=== PATIENT | male | born 1955 | race Caucasian/White ===

== ENCOUNTER 2017-10-07 12:09 | Observation (INO) ==
--- NOTE | 2017-10-07 12:43 | Emergency Department Note ---
Disposition Clinical Impression: Azotemia, Orthostatic hypotension Leukocytosis, unspecified Qualifiers: Leukocytosis type: unspecified Qualified Code(s): D72.829 - Elevated white blood cell count, unspecified Disposition: Admitted As Inpatient Condition: Fair Time of Disposition: 15:00 (Dr Eaton) Weakness HPI - General Chief complaint: ED General Medical Stated complaint: Family sts he needs to be admitted Time Seen by Provider: 10/07/17 12:26 Source: patient, family Limitations: no limitations Nursing Notes Reviewed: Yes Vital Signs Reviewed: Yes - History of Present Illness Pt Subjective Complaint: generalized weakness/fatigue Onset (ago): week(s) (1) Duration: gradually worsening Location: generalized Migration: none Pain Scale: 10 Context: other (Patient comes to the ED secondary to progressive weakness in the last week. The patient states when he tries to ambulate he feels dizzy and has difficult time getting from the bedroom to his bathroom. He denies any shortness of breath but rather feels lightheaded. He was seen in the ED less than a week ago secondary to bladder retention and just underwent CT scan of the abdomen and pelvis secondary for current urologic workup.) Associated symptoms: Reports: loss of appetite, syncope. Denies: chest pain, confusion, dark stools, diaphoresis, dysuria, easy bruising, fever/chills, headaches, nausea/vomiting, myalgias, rash, shortness of breath - Related Data Home Medications Medication Instructions Recorded Confirmed Clopidogrel [Plavix] 75 mg PO DAILY 07/16/15 10/07/17 Lisinopril 20 mg PO DAILY 12/22/15 10/07/17 Albuterol Sulfate [Albuterol 2 puff IH Q4HR PRN 07/01/16 10/07/17 Inhaler] Aspirin [Lo-Dose Aspirin EC] 81 mg PO DAILY 01/26/17 10/07/17 Lovastatin 80 mg PO HS 01/26/17 10/07/17 amLODIPine [Norvasc] 5 mg PO DAILY 01/26/17 10/07/17 Oxybutynin [Ditropan] 10 mg PO DAILY 10/07/17 10/07/17 Previous Rx's Medication Instructions Recorded OxyCODONE/APAP 5/325 [Percocet 1 each PO Q6HR PRN #20 tablet 05/15/17 5/325 MG] Allergies Allergy/AdvReac Type Severity Reaction Status Date / Time Beta-Blockers AdvReac See Verified 05/14/17 07:19 (Beta-Adrenergic Bloc Comments All systems ED: reviewed and negative except as stated. Past Medical History - Past Medical History Medical history: Reports: COPD, coronary artery disease, CVA, hyperlipidemia, hypertension, other Surgical history: Reports: angioplasty/stent, other Psychiatric history: Reports: PTSD - Social History Smoking Status: Current every day smoker Smokeless Tobacco Status: No Alcohol use: Reports: none Drug use: Reports: none Physical Exam - General Limitations: no limitations General appearance: alert - Head Head exam: atraumatic, normocephalic - Eye Eye exam: Present: normal appearance, PERRL, EOMI. Absent: scleral icterus, conjunctival injection, nystagmus - ENT ENT exam: normal exam, normal oropharynx - Neck Neck exam: Present: normal inspection, full ROM, trachea midline. Absent: meningismus, lymphadenopathy - Chest Chest inspection: Present: normal inspection, symmetric chest wall rise - Respiratory Respiratory exam: Present: normal lung sounds bilaterally. Absent: respiratory distress, wheezes, stridor, accessory muscle use - Cardiovascular Cardiovascular exam: Present: regular rate, normal rhythm, normal heart sounds. Absent: JVD - Abdominal Exam Abdominal exam: Present: soft, tenderness, normal bowel sounds Abdominal tenderness: Present: suprapubic, mild - Extremities Exam Extremities exam: Present: normal inspection, full ROM, normal capillary refill. Absent: tenderness, pedal edema, joint swelling - Back Exam Back exam: Present: normal inspection, full ROM. Absent: tenderness, CVA tenderness (R), CVA tenderness (L) - Neurological Exam Neurological exam: Present: alert, oriented X3 - Skin Skin exam: Present: warm, dry, intact Course Vital Signs Temperature 97.4 F L 10/07/17 12:12 Pulse Rate 83 10/07/17 12:12 Respiratory Rate 17 10/07/17 12:12 Blood Pressure 72/50 10/07/17 12:12 O2 Sat by Pulse Oximetry 92 10/07/17 12:12 Temperature 98.9 F 10/07/17 20:40 Pulse Rate 82 10/07/17 20:40 Respiratory Rate 18 10/07/17 20:40 Blood Pressure 108/68 10/07/17 20:40 O2 Sat by Pulse Oximetry 94 10/07/17 20:40 Oxygen Delivery Oxygen Delivery Room Air Weakness - MDM Narrative Medical decision making narrative: Stable ED course with no changes in mental status. The patient positive orthostatic hypotension which could be leading to his current dizziness when he ambulates. Laboratory evaluation indicates cytosis of undetermined etiology. I did review the patient's CT scan that was done today and indicates that he may have an obstructive bladder secondary to potential mass leading to hydronephrosis. 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 The patient presentation was discussed with hospitalist and agreed to admit the patient for hydration and stabilization of his orthostatic hypotension. The patient also received Levaquin for potential bladder infection. Patient's previous urinalysis was negative for any infection or gross. - Differential Diagnosis Differential Diagnosis: Likely: anemia, dehydration, medication effect - Medical Records Medical records reviewed: Yes I reviewed the patient's medical records. - Lab Data Lab results reviewed: Yes I reviewed the patient's lab results. Result diagrams: 10/07/17 13:11 10/07/17 13:11 Lab Results 10/07/17 10/07/17 10/07/17 Range/Units 13:11 13:11 13:11 WBC 30.0 H* (4.3-11.1) K/mcL RBC 4.07 L (4.19-5.50) M/mcL Hgb 11.5 L (12.9-16.9) g/dL Hct 35.5 L (37.5-50.1) % MCV 87.2 (83.0-100.0) fL MCH 28.3 (28.0-33.3) pg MCHC 32.4 (31.6-35.5) g/dL RDW 13.3 (11.5-14.5) % Plt Count 392 (140-400) K/mcL MPV 10.0 (9.4-12.4) fL Seg Neutrophils % 62.0 % Band Neutrophils % 2.0 (0-4) % Lymphocytes % 17.0 % Monocytes % 8.0 % Eosinophils % 8.0 % Basophils % 2.0 % Promyelocytes % 1.0 H (0) % Neutrophils # 19.2 H (1.6-8.9) K/mcL Lymphocytes # 5.1 H (0.6-4.6) K/mcL Monocytes # 2.4 H (0.0-1.3) K/mcL Eosinophils # 2.4 H (0.0-0.6) K/mcL Basophils # 0.6 H (0.0-0.2) K/mcL Platelet Estimate Increased H (Normal) Sodium 131 L (136-145) mEq/L Potassium 4.7 (3.5-5.1) mEq/L Chloride 94 L (98-107) mEq/L Carbon Dioxide 27 (23-29) mEq/L BUN 36 H (8-23) mg/dL Creatinine 2.31 H (0.70-1.30) mg/dL Est GFR ( Amer) 35 L (> 60) Est GFR (Non-Af Amer) 29 L (> 60) BUN/Creatinine Ratio 16 (6-26) Glucose 111 H (70-105) mg/dL Calculated Osmolality 281 (280-300) Calcium 9.1 (8.6-10.3) mg/dL Total Bilirubin (0.3-1.0) mg/dL Direct Bilirubin (0.0-0.2) mg/dL Indirect Bilirubin (0.0-1.2) mg/dL AST (13-39) Units/L ALT (7-52) Units/L Alkaline Phosphatase (34-104) Units/L Troponin I < 0.03 (< 0.04) ng/mL B-Natriuretic Peptide (Less than 100) pg/mL Serum Total Protein (6.4-8.9) g/dL Albumin (3.5-5.7) g/dL Globulin (2.4-3.5) g/dL Albumin/Globulin Ratio (1.1-2.2) Urine Color (Yellow) Urine Clarity (Clear) Urine pH (5.0-8.0) pH Units Ur Specific [place] (1.010-1.025) Urine Protein (Neg-Trace) mg/dL Urine Glucose (UA) (Normal) mg/dL Urine Ketones (Negative) mg/dL Urine Blood (Negative) Urine Nitrite (Negative) Urine Bilirubin (Negative) Urine Urobilinogen (Normal) mg/dL Ur Leukocyte Esterase (Negative) Urine Microscopic RBC (0-3) per hpf Urine Microscopic WBC (0-3) per hpf Ur Squamous Epith Cells (None-Few) per lpf Urine Bacteria (None-Few) per hpf Urine Mucus (Few) Ur Culture Indicated? (NO) 10/07/17 10/07/17 10/07/17 Range/Units 13:11 13:11 14:27 WBC (4.3-11.1) K/mcL RBC (4.19-5.50) M/mcL Hgb (12.9-16.9) g/dL Hct (37.5-50.1) % MCV (83.0-100.0) fL MCH (28.0-33.3) pg MCHC (31.6-35.5) g/dL RDW (11.5-14.5) % Plt Count (140-400) K/mcL MPV (9.4-12.4) fL Seg Neutrophils % % Band Neutrophils % (0-4) % Lymphocytes % % Monocytes % % Eosinophils % % Basophils % % Promyelocytes % (0) % Neutrophils # (1.6-8.9) K/mcL Lymphocytes # (0.6-4.6) K/mcL Monocytes # (0.0-1.3) K/mcL Eosinophils # (0.0-0.6) K/mcL Basophils # (0.0-0.2) K/mcL Platelet Estimate (Normal) Sodium (136-145) mEq/L Potassium (3.5-5.1) mEq/L Chloride (98-107) mEq/L Carbon Dioxide (23-29) mEq/L BUN (8-23) mg/dL Creatinine (0.70-1.30) mg/dL Est GFR ( Amer) (> 60) Est GFR (Non-Af Amer) (> 60) BUN/Creatinine Ratio (6-26) Glucose (70-105) mg/dL Calculated Osmolality (280-300) Calcium (8.6-10.3) mg/dL Total Bilirubin 0.9 (0.3-1.0) mg/dL Direct Bilirubin 0.3 H (0.0-0.2) mg/dL Indirect Bilirubin 0.6 (0.0-1.2) mg/dL AST 23 (13-39) Units/L ALT 36 (7-52) Units/L Alkaline Phosphatase 145 H (34-104) Units/L Troponin I (< 0.04) ng/mL B-Natriuretic Peptide 52 (Less than 100) pg/mL Serum Total Protein 6.8 (6.4-8.9) g/dL Albumin 2.9 L (3.5-5.7) g/dL Globulin 3.9 H (2.4-3.5) g/dL Albumin/Globulin Ratio 0.7 L (1.1-2.2) Urine Color Light Yellow (Yellow) Urine Clarity Clear (Clear) Urine pH 5.5 (5.0-8.0) pH Units Ur Specific [place] <= 1.005 L (1.010-1.025) Urine Protein 30 H (Neg-Trace) mg/dL Urine Glucose (UA) Normal (Normal) mg/dL Urine Ketones Negative (Negative) mg/dL Urine Blood Large H (Negative) Urine Nitrite Negative (Negative) Urine Bilirubin Negative (Negative) Urine Urobilinogen Normal (Normal) mg/dL Ur Leukocyte Esterase Moderate H (Negative) Urine Microscopic RBC 15-30 H (0-3) per hpf Urine Microscopic WBC 5-15 H (0-3) per hpf Ur Squamous Epith Cells Few (None-Few) per lpf Urine Bacteria Few (None-Few) per hpf Urine Mucus Few (Few) Ur Culture Indicated? YES A (NO) - Radiology Data Radiology results reviewed: Yes I reviewed the patient's radiology results. Chest X-Ray 10/07/17 13:32 IMPRESSION: No acute cardiopulmonary disease. D/ / Jennifer Barnes MD / Jennifer Barnes MD Interpreting Provider: Jennifer Barnes MD - EKG Data Rate: normal Rhythm: NSR Interpretation: normal EKG, unchanged when compared to prior tracing (date) (), nonspecific ST-T wave changes
[2017-10-07] MEDS ORDERED: 0.9 % Sodium Chloride 1,000 ML IVC ONE (12:44)
[2017-10-07 13:19] LABS: Hematocrit 35.5 % (37.5-50.1); Hemoglobin 11.5 g/dL (12.9-16.9); Mean Corpuscular HGB Conc 32.4 g/dL (31.6-35.5); Mean Corpuscular Hemoglobin 28.3 pg (28.0-33.3); Mean Corpuscular Volume 87.2 fL (83.0-100.0); Platelet Count 392 K/mcL (140-400); Red Blood Count 4.07 M/mcL (4.19-5.50); Red Cell Distribution Width 13.3 % (11.5-14.5)
[2017-10-07] MEDS ORDERED: Levofloxacin 750 MG/150 ML 750 MG/150 ML BAG IVPB ONE (13:44)
[2017-10-07 13:45] LABS: Basophils # 0.6 K/mcL (0.0-0.2); Eosinophils # 2.4 K/mcL (0.0-0.6); Monocytes # 2.4 K/mcL (0.0-1.3); Neutrophils # 19.2 K/mcL (1.6-8.9)
[2017-10-07 13:46] LABS: Lymphocytes # 5.1 K/mcL (0.6-4.6)
[2017-10-07 13:47] LABS: Platelet Estimate Increased (Normal)
[2017-10-07 14:37] LABS: Albumin 2.9 g/dL (3.5-5.7); Albumin/Globulin Ratio 0.7 (1.1-2.2); Bilirubin,Direct 0.3 mg/dL (0.0-0.2); Bilirubin,Indirect 0.6 mg/dL (0.0-1.2); Bilirubin,Total 0.9 mg/dL (0.3-1.0); Calcium 9.1 mg/dL (8.6-10.3); Globulin 3.9 g/dL (2.4-3.5); Potassium 4.7 mEq/L (3.5-5.1); Total Protein 6.8 g/dL (6.4-8.9)
[2017-10-07 14:38] LABS: Bilirubin,Urine Negative (Negative); Blood,Urine Large (Negative); Clarity,Urine Clear (Clear); Color,Urine Light Yellow (Yellow); Glucose,Urine (UA) Normal (Normal); Ketones,Urine Negative (Negative); Leukocyte Esterase,Urine Moderate (Negative); Nitrite,Urine Negative (Negative); PH,Urine 5.5 pH Units (5.0-8.0); Protein,Urine 30 mg/dL (Neg-Trace); Specific Gravity,Urine <= 1.005 (1.010-1.025); Urobilinogen,Urine Normal (Normal)
[2017-10-07 14:44] LABS: RBC,Urine 15-30 per hpf (0-3); Squamous Epithelial Cell,Urine Few per lpf (None-Few)
[2017-10-07 14:45] LABS: Bacteria,Urine Few per hpf (None-Few); Mucus,Urine Few (Few)
[2017-10-07] MEDS ORDERED: *HR* OxyCODONE/APAP 5/325 TABLET PO ONE ×2 (15:27→21:37)
[2017-10-07] MEDS ORDERED: 0.9 % Sodium Chloride 1,000 ML IVC SCH (16:55)
[2017-10-07] MEDS ORDERED: Ondansetron 4 MG/2 ML VIAL IVP PRN (16:55)
[2017-10-07] MEDS ORDERED: Naloxone 0.4 MG/ML INJ IVP PRN (16:55)
[2017-10-07] MEDS ORDERED: *HR* HYDROcodone/Acet 5/325 mg TABLET PO PRN (16:55)
[2017-10-07] MEDS ORDERED: Acetaminophen 325 MG TABLET PO PRN (16:55)
--- NOTE | 2017-10-07 20:05 | Internal Med History&Physical ---
Date of Encounter: 10/07/17 Time of Encounter: 19:30 Assessment and Plan (1) Hydronephrosis due to obstruction of ureter Current visit: Yes Status: Acute Likely bladder cancer with obstruction of right ureteral orifice. Will refer to [facility] for intervention by urology or interventional radiology. (2) Mass of urinary bladder Current visit: Yes Status: Acute Likely bladder cancer with metastases to liver. Will refer for oncology evaluation. (3) Anemia Current visit: Yes Status: Acute Suspect due at least in part to anemia from blood loss. Will order anemia testing in a.m. Qualifiers: Anemia type: unspecified type Qualified Code(s): D64.9 - Anemia, unspecified (4) Acute renal insufficiency Current visit: Yes Status: Acute Will give IV fluids and monitor renal indices. (5) UTI (urinary tract infection) Current visit: Yes Status: Acute He received IV Levaquin in emergency room. Will start IV Rocephin and give lactobacillus. Qualifiers: Urinary tract infection type: site unspecified Hematuria presence: with hematuria Qualified Code(s): N39.0 - Urinary tract infection, site not specified; R31.9 - Hematuria, unspecified; R31.9 - Hematuria, unspecified (6) CKD (chronic kidney disease) stage 3, GFR 30-59 ml/min Current visit: No Status: Chronic Monitor renal indices Internal Medicine - H&P: HPI Chief complaint: Weakness Admitted From: Emergency Dept Plans for Post Hospital Care: Home History of present illness: Mr. Bonilla is a 62 year old male who came to [facility] for outpatient CT scan of the abdomen pelvis ordered by a urologist. He was noted to be very weak and had near syncopal episode in the CT scanner. He was taken to emergency room where evaluation showed significant leukocytosis and slight worsening of his known chronic kidney disease. He also had probable UTI. CT scan showed significant right hydronephrosis with soft tissue bladder mass suspicious for bladder cancer and liver lesions suspicious for metastases. He was admitted to [facility] for ongoing care needs. He denies visible hematuria in the past. He denies kidney stones. He has had long-standing CKD stage III but has not followed with a two way radio installer for approximately 3 years stating he was "a waste of time" to make frequent visits to the office since he did not feel specific intervention was being done. He denies prostate disorders. He reports being recently treated for testicular infection (?). Past Med Surg Social Fam HX - Past Medical History Medical history: COPD, coronary artery disease, CVA, hyperlipidemia, hypertension, other Psychiatric history: PTSD - Past Surgical History Surgical History: angioplasty/stent, other - Social History Smoking Status: Current every day smoker Smokeless Tobacco Status: No Alcohol use: none Drug use: none Internal Medicine - H&P: Meds Clopidogrel [Plavix] 75 mg PO DAILY 07/16/15 [History] Lisinopril 20 mg PO DAILY 12/22/15 [History] Albuterol Sulfate [Albuterol Inhaler] 2 puff IH Q4HR PRN 07/01/16 [History] Aspirin [Lo-Dose Aspirin EC] 81 mg PO DAILY 01/26/17 [History] Lovastatin 80 mg PO HS 01/26/17 [History] amLODIPine [Norvasc] 5 mg PO DAILY 01/26/17 [History] OxyCODONE/APAP 5/325 [Percocet 5/325 MG] 1 each PO Q6HR PRN #20 tablet 05/15/17 [Rx] Oxybutynin [Ditropan] 10 mg PO DAILY 10/07/17 [History] 3 Allergy/AdvReac Type Severity Reaction Status Date / Time Beta-Blockers AdvReac See Verified 05/14/17 07:19 (Beta-Adrenergic Bloc Comments All Systems PM: A 10-system review of systems was performed and is negative for pertinent findings except as documented above in the HPI. Review of systems: Review of systems from his March 2016 [facility] hospitalization were reviewed and revised as below. General: His weight has decreased from 110.178 kg on 03/23/2016 to 83.915 kg on admission now. Cardiovascular: He has history of hypertension. He claims he had an MA in 2014. He denies heart failure DVT or pulmonary embolus Respiratory: He has smoked since age 6 up to 2 packs per day. He had pulmonary function test in March 2013 which showed FEV1 of 1.36 L and FVC of 2.80. His MVV was 20% of predicted. His RV was 244% of predicted. He was diagnosed with severe COPD with probable asthmatic component and air trapping. He does not wear home oxygen. He has not been tested for sleep apnea. GI: He claims he had colon polyps on a past colonoscopy. He denies disorders of his liver gallbladder or exocrine pancreas : As per history of present illness Neurologic: He has had right basal ganglia infarct in the past. He has had right carotid stent placement after reported 100 percent occlusion of right carotid artery. He had left carotid endarterectomy fall 2016 for 80-99% stenosis. He has not had seizures. Endocrine: She has history of hyperlipidemia but no known diabetes. 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 He had post biopsy cellulitis that required IV antibiotics for several days. The biopsy report showed Warthin tumor. He denies other internal malignancies. There is no history of anemia. Psychiatric: he has PTSD and depression Musk skeletal: He has DJD and claims he fractured his back in the past. He has had wrist surgery in the past. - Constitutional Vitals: Temp Pulse Resp BP Pulse Ox 97.5 F L 77 14 97/60 95 10/07/17 15:43 10/07/17 15:43 10/07/17 16:30 10/07/17 16:30 10/07/17 15:43 Exam: Gen.: He is a well-developed well-nourished male lying quietly in bed who appears in minimal distress at present time. He does complain of pain in the suprapubic area. HEENT: Head is atraumatic and normocephalic. Eyes: EOMI. There is no scleral icterus. Mouth: Mucosa is moist. Neck: Supple and nontender. There is no thyromegaly or adenopathy noted. Heart: Regular without murmurs gallops or ectopics Lungs: No wheezes or crackles are heard. Abdomen: Soft and nontender. No masses or guarding are noted. Extremities: There is no cyanosis edema or clubbing noted. Dorsalis pedis and posterior tibial pulses are trace to 1+ palpable bilaterally. Neurologic: Mental status: He is talkative and a good historian. Cranial nerves : Smile is symmetric. Forehead wrinkles bilaterally. Tongue protrudes midline. EOMI. Motor: There is no pronator drift. Cerebellar: Finger to nose is intact bilaterally. Skin: Warm and dry Internal Med - H&P Results - Labs CBC & Chem 7: 10/07/17 13:11 10/07/17 13:11
[2017-10-07] MEDS ORDERED: *HR* OxyCODONE/APAP 5/325 TABLET PO PRN (20:19)
[2017-10-07] MEDS ORDERED: cefTRIAXone 1,000 MG in Water for inj. (sterile) 20 ML 10 ML IVP SCH (21:00)
[2017-10-07] MEDS ORDERED: Lactobacillus 1 EACH CAP.SPRINK PO SCH (21:00)
[2017-10-08] MEDS ORDERED: *HR* OxyCODONE/APAP 10/325 TABLET PO SCH (05:00)
[2017-10-08 05:55] LABS: Hematocrit 30.4 % (37.5-50.1); Hemoglobin 9.6 g/dL (12.9-16.9); Mean Corpuscular HGB Conc 31.6 g/dL (31.6-35.5); Mean Corpuscular Hemoglobin 27.7 pg (28.0-33.3); Mean Corpuscular Volume 87.6 fL (83.0-100.0); Mean Platelet Volume 10.2 fL (9.4-12.4); Platelet Count 322 K/mcL (140-400); Red Blood Count 3.47 M/mcL (4.19-5.50); Red Cell Distribution Width 13.4 % (11.5-14.5)
[2017-10-08 06:01] LABS: INR 1.6; Prothrombin Time 16.9 Seconds (9.4-12.1)
[2017-10-08 06:20] LABS: Albumin 2.6 g/dL (3.5-5.7); Albumin/Globulin Ratio 0.8 (1.1-2.2); Bilirubin,Total 0.5 mg/dL (0.3-1.0); Calcium 8.4 mg/dL (8.6-10.3); Globulin 3.3 g/dL (2.4-3.5); Potassium 4.5 mEq/L (3.5-5.1); Total Protein 5.9 g/dL (6.4-8.9)
[2017-10-08 07:15] VITALS: BP 111/67
[2017-10-08 07:32] LABS: Monocytes # 2.5 K/mcL (0.0-1.3); Neutrophils # 17.6 K/mcL (1.6-8.9)
[2017-10-08] MEDS ORDERED: Aspirin Enteric Coated 81 MG Tablet PO SCH (09:00)
[2017-10-08] MEDS ORDERED: amLODIPine 5 MG TABLET PO SCH (09:00)
[2017-10-08 10:43] LABS: Folate 6.7 ng/mL (3.0-16.0)
[2017-10-08 14:54] LABS: % Iron Saturation 10 % (20-55); Ferritin 505 ng/ml (20-250); Iron 18 mcg/dL (65-175); Transferrin 126 mg/dL (203-362)
--- NOTE | 2017-10-09 11:59 | Electrocardiograph Report ---
[address] [address] Test Date: 2017-10-07 Pat Name: Pierre Bonilla Department: [id number] Room: [facility] Gender: M Animal Warden: [id number] : 1955 Requested By: Dante Goetz Order Number: [id number] Reading MD: Freddie Rose DO Measurements Intervals [place] Rate: 80 P: [place]: 0 QRS: 15 QRSD: 87 T: 40 QT: 391 QTc: 427 Interpretive Statements Sinus rhythm with PACs Electronically Signed On 10-09-2017 11:58:09 EST by Freddie Rose DO
--- NOTE | 2017-10-09 14:07 | Discharge Summary ---
Date of Encounter: 10/09/17 Time of Encounter: 14:05 - Discharge Diagnosis (1) Hydronephrosis due to obstruction of ureter Priority: Primary Status: Acute (2) Mass of urinary bladder Priority: Secondary Status: Acute (3) Anemia Priority: Secondary Status: Acute Qualifiers: Anemia type: unspecified type Qualified Code(s): D64.9 - Anemia, unspecified (4) Acute renal insufficiency Priority: Secondary Status: Acute (5) UTI (urinary tract infection) Priority: Secondary Status: Suspected Qualifiers: Urinary tract infection type: site unspecified Hematuria presence: with hematuria Qualified Code(s): N39.0 - Urinary tract infection, site not specified; R31.9 - Hematuria, unspecified; R31.9 - Hematuria, unspecified (6) CKD (chronic kidney disease) stage 3, GFR 30-59 ml/min Priority: Secondary Status: Chronic Hospital course: Mr. Bonilla is a 62 year old male who came to [facility] for outpatient CT scan of the abdomen pelvis ordered by a urologist. He was noted to be very weak and had near syncopal episode in the CT scanner. He was taken to emergency room where evaluation showed significant leukocytosis and slight worsening of his known chronic kidney disease. He also had probable UTI. CT scan showed significant right hydronephrosis with soft tissue bladder mass suspicious for bladder cancer and liver lesions suspicious for metastases. He was admitted to [facility] for ongoing care needs. Initial orders were written by the emergency room physician. I saw him on October 07 and performed a history and physical. I reviewed the CT findings with him the evening of admission. I felt he needed to be transferred for probable percutaneous nephrostomy tube placement for right hydronephrosis. I also felt he needed to have oncology evaluation for likely bladder cancer with metastases. He agreed to be transferred [facility]. Contact was made with bed control and a bed was available in the hay buckler hours of October 08. He was transferred there in stable condition. - Time Spent with Patient Total time spent providing and/or coordinating discharge services: - Discharge Medications Home Medications: Clopidogrel [Plavix] 75 mg PO DAILY 07/16/15 [History] Albuterol Sulfate [Albuterol Inhaler] 2 puff IH Q4HR PRN 07/01/16 [History] Aspirin [Lo-Dose Aspirin EC] 81 mg PO DAILY 06/19/17 [History] Lovastatin 80 mg PO HS 01/26/17 [History] amLODIPine [Norvasc] 5 mg PO DAILY 01/26/17 [History] Oxybutynin [Ditropan] 10 mg PO DAILY 10/07/17 [History] Budesonide [Pulmicort Flexhaler 180mcg] 1 puff IH BID 10/08/17 [History] Lisinopril-HCTZ 10-12.5 [Prinzide 10-12.5] 1 tab PO DAILY 10/08/17 [History] Nitroglycerin [Nitrostat] 0.4 mg SL Q5M PRN 10/08/17 [History] Oxycodone HCl/Acetaminophen [Percocet 10-325 mg Tablet] 1 tab PO TID PRN [History] Allergies/Adverse Reactions: 3 Allergy/AdvReac Type Severity Reaction Status Date / Time Beta-Blockers AdvReac See Verified 05/14/17 07:19 (Beta-Adrenergic Bloc Comments Date of admission: 10/07/17 16:10 Primary care physician: Karlos Blum MD Consults: 10/07/17 18:45 Consult to Nutrition [CONS] Routine Comment: Consulting Provider: NUTRITION Reason for Dietary Consult: MST Score - Constitutional Vitals: Temp Pulse Resp BP Pulse Ox 98.5 F 68 20 111/67 92 10/08/17 07:12 10/08/17 07:12 10/08/17 07:12 10/08/17 07:12 10/08/17 07:12 - Patient Status Disposition: Transfer Other Condition: Fair - Discharge Instructions Follow Up With: Karlos Blum MD [Primary Care Provider] - 1 week
== END 2017-10-08 07:51 | disposition short-term general hospital (02) ==
LOC: EMEROOPIK 12:09 → INPPIK 12:09
PROVIDERS: ADMIT Internal Medicine; ATTEND Internal Medicine